=== PATIENT | female | born 1970 | race Caucasian/White ===

== ENCOUNTER 2020-02-27 19:46 | Emergency (ER) | payer SELFPAY ==
[2020-02-27 20:33] LABS: ABSOLUTE BASOPHILS # (AUTO) 0.1 10^3/uL (0.0-0.2); ABSOLUTE EOSINOPHILS # (AUTO) 0.1 10^3/uL (0.0-0.6); ABSOLUTE LYMPHOCYTES (AUTO) 3.1 10^3/uL (0.5-4.7); ABSOLUTE MONOCYTES (AUTO) 0.5 10^3/uL (0.1-1.4); ABSOLUTE NEUT (AUTO) 4.8 10^3/uL (1.7-8.2); BASOPHILS % (AUTO) 0.9 % (0-2); EOSINOPHILS % (AUTO) 1.6 % (0-6); HEMATOCRIT 39.2 % (36.0-47.0); HEMOGLOBIN 13.6 g/dL (12.0-15.5); LYMPHOCYTES % (AUTO) 35.4 % (13-45); MEAN CORPUSCULAR HEMOGLOBIN 30.1 pg (27.0-33.4); MEAN CORPUSCULAR HGB CONC 34.6 g/dL (32.0-36.0); MEAN CORPUSCULAR VOLUME 87 fl (80-97); MONOCYTES % (AUTO) 6.1 % (3-13); PLATELET COUNT 209 10^3/uL (150-450); RED BLOOD COUNT 4.51 10^6/uL (3.72-5.28); RED CELL DISTRIBUTION WIDTH 13.7 % (11.5-14.0); TOTAL CELLS COUNTED % (AUTO) 100 %; WHITE BLOOD COUNT 8.6 10^3/uL (4.0-10.5)
[2020-02-27 20:45] LABS: ALBUMIN 4.1 g/dL (3.5-5.0); ALKALINE PHOSPHATASE 130 U/L (38-126); ANION GAP 10 (5-19); ASPARTATE AMINO TRANSFERASE 38 U/L (14-36); BILIRUBIN,TOTAL 0.3 mg/dL (0.2-1.3); BLOOD UREA NITROGEN 14 mg/dL (7-20); CALCIUM 9.5 mg/dL (8.4-10.2); CARBON DIOXIDE 23 mmol/L (22-30); CHLORIDE 101 mmol/L (98-107); CREATINE KINASE 63 U/L (30-135); GLUCOSE 256 mg/dL (75-110); POTASSIUM 3.8 mmol/L (3.6-5.0); TOTAL PROTEIN 7.3 g/dL (6.3-8.2)
[2020-02-27 20:54] LABS: CREATINE KINASE MB 0.55 ng/mL (<4.55)
[2020-02-27 20:58] LABS: TROPONIN I < 0.012 ng/mL
--- NOTE | 2020-02-27 21:34 | RADIOLOGY REPORT (SQ) ---
EXAM DESCRIPTION: AP portable radiograph of the chest CLINICAL HISTORY: 49 years Female, dyspnea COMPARISON: None. FINDINGS: Lungs: Lungs are clear. No pneumonia or edema. No pneumothorax or pleural effusion. Mediastinum: Cardiac and mediastinal silhouette are normal. Bones: There appears to be focal density projecting over the left anterior first and second rib which may represent healing rib fractures. Vascular clips are seen in the left axilla. IMPRESSION: No acute process. No pneumonia or edema.
--- NOTE | 2020-02-27 21:40 | ER Document Report ---
ED General - General Chief Complaint: Chest Pain Stated Complaint: CHEST PAIN Time Seen by Provider: 02/27/20 20:22 - HPI Notes: Chief complaint: Cough and chest discomfort HPI: 49-year-old female cigarette smoker with history of COPD and diabetes mellitus type 2 complains of 7 to 10-day history of cough productive of yellow sputum associated with soreness in the chest aggravated by deep breathing, coughing and movement. She denies any known history of cardiac disease. No hyperlipidemia. Family history negative. Presently smoking 1/2 pack of cigarettes per day. Uses a rescue inhaler as needed. She does not use oxygen at home. She is not currently on steroids. Denies hemoptysis. Denies fever or chills. Denies vomiting. Denies any known history of thromboembolic disease. Patient says she has been isolating herself at home for many weeks because of concern about COVID-19 and her pre-existing respiratory problems. No contact with anyone known to have COVID-19. No travel outside the area. - Related Data Allergies/Adverse Reactions: amoxicillin Allergy (Verified 02/27/20 20:29) cinnamon Allergy (Verified 02/27/20 20:29) latex Allergy (Verified 02/27/20 20:29) ondansetron [From Zofran] Allergy (Verified 02/27/20 20:29) Penicillins Allergy (Verified 02/27/20 20:29) sertraline [From Zoloft] Allergy (Verified 02/27/20 20:29) Past Medical History - General Information source: Patient - Social History Smoking Status: Current Every Day Smoker Family History: Reviewed & Not Pertinent Patient has suicidal ideation: No Patient has homicidal ideation: No - Past Medical History Cardiac Medical History: Denies: Hx Coronary Artery Disease Pulmonary Medical History: Reports: Hx COPD Endocrine Medical History: Reports: Hx Diabetes Mellitus Type 2 Musculoskeletal Medical History: Reports Hx Arthritis Past Surgical History: Reports: Hx Appendectomy, Hx Hysterectomy, Hx Mastectomy Review of Systems - Review of Systems Notes: Constitutional: Negative for fever. HENT: Negative for sore throat. Eyes: Negative for visual changes. Cardiovascular: As per HPI. Respiratory: As per HPI. Gastrointestinal: Negative for abdominal pain, vomiting or diarrhea. Genitourinary: Negative for dysuria. Musculoskeletal: Negative for back pain. Skin: Negative for rash. Neurological: Negative for headaches, weakness or numbness. 10 point ROS negative except as marked above and in HPI. Physical Exam - Vital signs Vitals: Pulse Resp BP Pulse Ox 104 H 20 143/83 H 96 02/27/20 20:10 02/27/20 20:10 02/27/20 20:10 02/27/20 20:10 - Notes Notes: GENERAL: Well-developed well-nourished appearing in no acute distress. Patient appears somewhat older than stated age. SKIN: Good turgor no rashes. HEAD: Normocephalic atraumatic. EYES: PERRLA. EOMI. Conjunctivae and sclerae clear. EARS: CANALS AND TMS CLEAR. NOSE: CLEAR. MOUTH: Moist mucosa. Good dentition. No stridor or edema. No drooling. NECK: Supple. No masses or thyromegaly. No adenopathy. Carotids 2+ without bruits. No JVD. BACK: Symmetrical without tenderness. CHEST: Diffusely tender over anterior chest wall with exact reproduction of her pain. Respirations unlabored. Scattered rhonchi bilaterally. HEART: Regular rhythm. No murmur gallop or rub. ABDOMEN: Soft nontender without masses, organomegaly or rebound. Bowel sounds normally active. No bruits. GENITALIA: Deferred. EXTREMITIES: No edema. No calf tenderness. Cap refill less than 1.5 seconds. Dorsalis pedis and posterior tibial pulses 3+ and symmetrical. NEUROLOGICAL: GCS 15. Alert and oriented x3. Fluent speech. Cranial nerves II through XII intact. Sensorimotor and cerebellar normal. Normal tone. PSYCHIATRIC: Appropriate affect. Course - Re-evaluation Re-evalutation: 02/27/20 21:40 Troponin is normal. Chest x-ray shows no infiltrate per radiologist. White count is normal. She does not have a fever. Random glucose is 256. CO2 is normal. Transaminase values mildly elevated consistent with fatty infiltration of liver related to poor control diabetes. Twelve-lead EKG shows normal sinus rhythm with QRS axis of positive 3 degrees. LVH with secondary repolarization abnormality. I would have low suspicion for COVID-19 in this case. We want to check a flu swab and then I am going to treat this lady empirically for bronchitis and I have encouraged her again to stop smoking. She can follow-up with her primary care doctor. 02/27/20 21:42 - Vital Signs Vital signs: Temp Pulse Resp BP Pulse Ox 99.2 F 104 H 16 129/92 H 99 02/27/20 20:13 02/27/20 20:10 02/27/20 21:01 02/27/20 21:01 02/27/20 21:01 - Laboratory Result Diagrams: 02/27/20 20:11 02/27/20 20:11 Laboratory results interpreted by me: 02/27/20 20:11 Sodium 133.9 L Glucose 256 H AST 38 H ALT 36 H Alkaline Phosphatase 130 H Discharge - Discharge Clinical Impression: Acute exacerbation COPD, Cigarette smoker Condition: Stable Disposition: HOME, SELF-CARE Additional Instructions: Bronchitis You have acute bronchitis. This disease is an infection or inflammation of the air passageways in your lungs. Symptoms usually include cough, low grade fever, shortness of breath, and wheezing. The cough usually persists for a coup le of weeks. Most cases of bronchitis get better without antibiotics. We prescribe antibiotics when we believe bacteria are damaging your airways, or if there's high risk the bronchitis will worsen into pneumonia. Increase your fluid intake. A cool mist humidifier may make your lungs more comfortable. An expectorant (cough medicine that loosens phlegm) can help. If you smoke, STOP!!! Recovery from bronchitis can be somewhat slow, but you should see improvement within a day or two. Repeated episodes of bronchitis may result in lung damage -- for example, chronic bronchitis, recurrent pneumonias, or emphysema. Call the doctor if you develop increasing fever, shortness of breath, chest pain, bloody sputum, or otherwise worsen. If you have not improved at all after several days, contact the physician. Chronic Obstructive Lung Disease You have chronic obstructive lung disease (COPD). The symptoms come from emphysema (damage to small airways, with trapping of air in large sacks in the lung) and chronic bronchitis (repeated infection and damage to larger airways). The cause is almost always cigarette smoking, although dust exposure, asthma, and infections contribute. You should avoid fumes, dust, and smoke (especially tobacco smoke). Your condition will flare from time to time. There is no cure, but the symptoms can be treated. Bronchodilators (asthma medicine) are often helpful. Antibiotics help when infection is present. When shortness of breath is severe, we may prescribe cortisone medication. If medicine doesn't help enough, we can arrange for you to have an oxygen tank at home. Notify your doctor at once if sputum becomes thick, foul, or bloody, if you develop a fever or chest pain, or if your shortness of breath worsens. Take prescribed medication as instructed. Tylenol as needed. Increase oral fluids. Stop smoking. Follow-up with your primary care physician within the next 1 week. Prescriptions: Doxycycline Monohydrate 100 mg PO BID #20 capsule Forms: Smoking Cessation Education
[2020-02-27 22:13] VITALS: BP 131/95
[2020-02-27 22:15] LABS: A TYPE INFLUENZA AG NEGATIVE (NEGATIVE); B INFLUENZA AG NEGATIVE (NEGATIVE)
--- NOTE | 2020-02-28 08:17 | EKG REPORT ---
SEVERITY:- ABNORMAL ECG - SINUS RHYTHM LVH : Confirmed by: Dalia Sraavia MD 28-Feb-2020 08:16:50
== END 2020-02-27 22:56 | disposition home or self-care (01) ==
LOC: ER 19:46
DX: J44.1 Chronic obstructive pulmonary disease with (acute) exacerbation (principal); R07.9 Chest pain, unspecified; I51.7 Cardiomegaly; E11.9 Type 2 diabetes mellitus without complications; R05 Cough; F17.210 Nicotine dependence, cigarettes, uncomplicated; Z88.0 Allergy status to penicillin; Z91.018 Allergy to other foods; Z91.041 Radiographic dye allergy status; Z88.8 Allergy status to other drugs, medicaments and biological substances
CPT/HCPCS: 36415; 71045; 80053; 82550; 82553; 84484; 85025; 87804; 93005; 93010; 99285

== ENCOUNTER 2020-08-28 10:09 | Emergency (ER) | payer SELFPAY ==
[2020-08-28] MEDS ORDERED: AZITHROMYCIN 250 MG TABLET PO ONE (11:07)
[2020-08-28] MEDS ORDERED: DEXAMETHASONE 4 MG TABLET PO ONE (11:07)
[2020-08-28] MEDS ORDERED: ALBUTEROL SULFATE 0.083% NEB 2.5 MG/3 ML AMPUL NEB ONE (11:08)
--- NOTE | 2020-08-28 11:08 | ER Document Report ---
ED Respiratory Problem - General Chief Complaint: Shortness Of Breath Stated Complaint: SHORTNESS OF BREATH Time Seen by Provider: 08/28/20 10:27 Primary Care Provider: GIAN RED [Primary Care Provider] - Follow up as needed Notes: CHIEF COMPLAINT: Cough and shortness of breath for 4 days HPI: 50-year-old female who is a smoker presenting for cough and shortness of breath for 4 days coughing up green sputum. No fever. Complains of mild body ache. Patient states that her children were visiting her over the weekend just prior to her getting sick and they all had cough and "allergies". Patient denies chest pain. Denies abdominal pain nausea vomiting. ROS: See HPI - all other systems were reviewed and are otherwise negative Constitutional: no fever Eyes: no drainage, no blurred vision ENT: no runny nose, no sore throat Cardiovascular: no chest pain Resp: + SOB, + cough GI: no vomiting, no diarrhea, no abdominal pain : no dysuria Integumentary: no rash Allergy: no hives Musculoskeletal: no extremity pain or swelling Neurological: no numbness/tingling, no weakness MEDICATIONS: I agree with the patient medications as charted by the RN. ALLERGIES: I agree with the allergies as charted by the RN. PAST MEDICAL HISTORY/PAST SURGICAL HISTORY: Reviewed and agree as charted by RN. SOCIAL HISTORY: Reviewed and agree as charted by RN. FAMILY HISTORY: No significant familial comorbid conditions directly related to patient complaint EXAM: Reviewed vital signs as charted by RN. CONSTITUTIONAL: Alert and oriented and responds appropriately to questions. Well-appearing; well-nourished HEAD: Normocephalic; atraumatic EYES: PERRL; Conjunctivae clear, sclerae non-icteric ENT: normal nose; no rhinorrhea; moist mucous membranes; pharynx without lesions noted, no uvula edema or deviation, no tonsillar hypertrophy, phonation normal NECK: Supple without meningismus; non-tender; no cervical lymphadenopathy, no masses CARD: RRR; no murmurs, no clicks, no rubs, no gallops; symmetric distal pulses RESP: Normal chest excursion without splinting or tachypnea; breath sounds with some rhonchi right lower lobe. Congested cough noted, green sputum noted, pulse oximetry 96% on room air not hypoxic. ABD/GI: Normal bowel sounds; non-distended; soft, non-tender, no rebound, no guarding; no palpable organomegaly or masses. BACK: The back appears normal and is non-tender to palpation, there is no CVA tenderness EXT: Normal ROM in all joints; non-tender to palpation; no cyanosis, no effusions, no edema SKIN: Normal color for age and race; warm; dry; good turgor; no acute lesions noted NEURO: Moves all extremities equally; Motor and sensory function intact PSYCH: The patient's mood and manner are appropriate. Grooming and personal hygiene are appropriate. MDM: 50-year-old female with upper respiratory symptoms for 4 days. Coughing up green sputum. Children were all sick with upper respiratory symptoms recently. Chest x-ray does not show evidence of a significant infiltrate or pneumonia. She has no chest pain suggesting ACS. She is not hypoxic or significantly tachypneic. I suspect she likely has a lower respiratory infection, will test for Covid, anticipate discharge on antibiotics Decadron, albuterol with strict return precautions and quarantine precautions - Related Data Allergies/Adverse Reactions: amoxicillin Allergy (Verified 02/27/20 20:29) cinnamon Allergy (Verified 02/27/20 20:29) latex Allergy (Verified 02/27/20 20:29) ondansetron [From Zofran] Allergy (Verified 02/27/20 20:29) Penicillins Allergy (Verified 02/27/20 20:29) sertraline [From Zoloft] Allergy (Verified 02/27/20 20:29) Past Medical History - Social History Smoking Status: Unknown if Ever Smoked Family History: Reviewed & Not Pertinent Patient has homicidal ideation: No - Past Medical History Cardiac Medical History: Reports: Hx Hypertension Denies: Hx Coronary Artery Disease Pulmonary Medical History: Reports: Hx COPD Endocrine Medical History: Reports: Hx Diabetes Mellitus Type 2 Musculoskeletal Medical History: Reports Hx Arthritis Past Surgical History: Reports: Hx Appendectomy, Hx Hysterectomy, Hx Mastectomy - double Physical Exam - Vital signs Vitals: Temp Pulse Resp BP Pulse Ox 98.1 F 104 H 22 H 120/77 97 08/28/20 10:15 08/28/20 10:15 08/28/20 10:15 08/28/20 10:15 08/28/20 10:15 Course - Re-evaluation Re-evalutation: 08/28/20 11:20 EKG normal sinus rhythm with a ventricular rate of 87 OK 152 QT 396 QTC 477. Normal EKG, no other visible ectopy. Interpreted by emergency department physician. No significant change from prior EKG of February 27, 2020 08/28/20 12:12 Lung sounds remain clear to auscultation she feels better after breathing treatment states she does have a nebulizer at home but will need a new albuterol inhaler. She is agreeable with plan for discharge at this time will return for any worsening symptoms - Vital Signs Vital signs: Temp Pulse Resp BP Pulse Ox 98.1 F 104 H 22 H 120/77 97 08/28/20 10:15 08/28/20 10:15 08/28/20 10:15 08/28/20 10:15 08/28/20 10:15 Discharge - Discharge Clinical Impression: Lower respiratory infection, Person under investigation for COVID-19, Tobacco use Condition: Stable Disposition: HOME, SELF-CARE Additional Instructions: 1. take the medications as prescribed 2. if you were prescribed an Albuterol inhaler, use it as instructed, 2 puffs every 4 hours as needed for cough/wheezing 3. call your primary care provider as soon as possible to schedule recheck appt. in the office. 4. return to the ED for any worsening condition, shortness of breath or continued fever that does not resolve with Motrin/Tylenol 5. You are considered a person under investigation for COVID-19 at this time. Self quarantine at home pending your test results which may take 2 to 5 days. You should hear from someone at the hospital about your test results Prescriptions: Dexamethasone [Decadron 4 Mg Tablet] 4 mg PO DAILY #7 tablet Albuterol Sulfate [Proair HFA Inhalation Aerosol 8.5 gm MDI] 2 puff IH Q4H PRN #1 mdi PRN Reason: Azithromycin [Zithromax 250 mg Tablet] 250 mg PO ASDIR PRN #6 tablet PRN Reason: Referrals: COLIN QUIROZ MD [ACTIVE STAFF] - Follow up as needed
--- NOTE | 2020-08-28 11:29 | RADIOLOGY REPORT (SQ) ---
EXAM DESCRIPTION: CHEST SINGLE VIEW IMAGES COMPLETED DATE/TIME: 08/28/2020 11:07 am REASON FOR STUDY: SOB COMPARISON: 02/27/2020 EXAM PARAMETERS: NUMBER OF VIEWS: One view. TECHNIQUE: Single frontal radiographic view of the chest acquired. RADIATION DOSE: NA LIMITATIONS: None. FINDINGS: LUNGS AND PLEURA: No opacities, masses or pneumothorax. No pleural effusion. MEDIASTINUM AND HILAR STRUCTURES: No masses. Contour normal. HEART AND VASCULAR STRUCTURES: Heart normal in size. Normal vasculature. BONES: No acute findings. HARDWARE: None in the chest. OTHER: No other significant finding. IMPRESSION: NO ACUTE RADIOGRAPHIC FINDING IN THE CHEST. TECHNICAL DOCUMENTATION: JOB ID: [id number] 2010 [employer]- All Rights Reserved Reading location - IP/workstation name: [email or web address]
--- NOTE | 2020-08-28 12:47 | EKG REPORT ---
SEVERITY:- NORMAL ECG - SINUS RHYTHM : Confirmed by: Fernando Menchaca MD 28-Aug-2020 12:46:28
[2020-08-28 12:49] VITALS: BP 118/82
== END 2020-08-28 12:50 | disposition home or self-care (01) ==
LOC: ER 10:09
DX: J22 Unspecified acute lower respiratory infection (principal); F17.200 Nicotine dependence, unspecified, uncomplicated; Z20.828 Contact with and (suspected) exposure to other viral communicable diseases; R06.02 Shortness of breath; M79.10 Myalgia, unspecified site; I10 Essential (primary) hypertension; E11.9 Type 2 diabetes mellitus without complications; Z90.710 Acquired absence of both cervix and uterus
CPT/HCPCS: 93005; 94640; 99285; 87635; 71045; 93010; J8540; J7613; C9803

== ENCOUNTER 2020-09-18 11:42 | Emergency (ER) | payer SELFPAY ==
--- NOTE | 2020-09-18 14:03 | RADIOLOGY REPORT (SQ) ---
EXAM DESCRIPTION: CHEST SINGLE VIEW IMAGES COMPLETED DATE/TIME: 09/18/2020 1:46 pm REASON FOR STUDY: SOB COMPARISON: 08/28/2020 EXAM PARAMETERS: NUMBER OF VIEWS: One view. TECHNIQUE: Single frontal radiographic view of the chest acquired. RADIATION DOSE: NA LIMITATIONS: None. FINDINGS: LUNGS AND PLEURA: No opacities, masses or pneumothorax. No pleural effusion. MEDIASTINUM AND HILAR STRUCTURES: No masses. Contour normal. HEART AND VASCULAR STRUCTURES: Heart normal in size. Normal vasculature. BONES: No acute findings. HARDWARE: Left axillary surgical clips. OTHER: No other significant finding. IMPRESSION: NO ACUTE RADIOGRAPHIC FINDING IN THE CHEST. TECHNICAL DOCUMENTATION: JOB ID: [id number] 2010 [employer]- All Rights Reserved Reading location - IP/workstation name: [email or web address]
[2020-09-18] MEDS ORDERED: DEXAMETHASONE SOD PHOSPHATE INJ 4 MG/1 ML VIAL IM ONE (14:25)
[2020-09-18] MEDS ORDERED: IPRATROPIUM/ALBUTEROL 0.5-2.5 MG/3 ML AMPUL NEB ONE (14:26)
--- NOTE | 2020-09-18 14:30 | ER Document Report ---
ED General - General Chief Complaint: Cough Stated Complaint: COUGH,CONGESTION Time Seen by Provider: 09/18/20 14:09 Primary Care Provider: IRINA SHIELDS MD [Primary Care Provider] - Follow up as needed Mode of Arrival: Ambulatory Information source: Patient Notes: Patient is a 50-year-old female presenting today with 2 days of slightly productive cough and shortness of breath with fever and chills. Some body aches. No loss of taste or smell. History of type 2 diabetes, tobacco abuse. Denies nausea vomiting and diarrhea - Related Data Allergies/Adverse Reactions: amoxicillin Allergy (Verified 09/18/20 13:21) cinnamon Allergy (Verified 09/18/20 13:21) latex Allergy (Verified 09/18/20 13:21) ondansetron [From Zofran] Allergy (Verified 09/18/20 13:21) Penicillins Allergy (Verified 09/18/20 13:21) sertraline [From Zoloft] Allergy (Verified 09/18/20 13:21) Past Medical History - Social History Smoking Status: Current Every Day Smoker Family History: Reviewed & Not Pertinent Patient has homicidal ideation: No - Past Medical History Cardiac Medical History: Reports: Hx Hypertension Denies: Hx Coronary Artery Disease Pulmonary Medical History: Reports: Hx COPD Endocrine Medical History: Reports: Hx Diabetes Mellitus Type 2 Musculoskeletal Medical History: Reports Hx Arthritis Past Surgical History: Reports: Hx Appendectomy, Hx Hysterectomy, Hx Mastectomy - double Review of Systems - Review of Systems Notes: Constitutional: Positive for fever, chills, body aches, generalized malaise EENT: No eye redness. No eye pain. No ear pain. No sore throat. Cardiovascular: No chest pain. No palpitations. Respiratory: Positive for cough and shortness of breath Gastrointestinal: No abdominal pain. No nausea, vomiting, or diarrhea. Genitourinary: Atraumatic. No lesions. No pain. No discharge. Musculoskeletal: Atraumatic. No swelling. No deformities. Skin: No rash or lesions. Lymphatic: No swollen lymph nodes. Neurologic: No headache. No syncope. Psychiatric: No suicidal or homicidal ideation. Physical Exam - Vital signs Vitals: Temp Pulse Resp BP Pulse Ox 98.2 F 111 H 20 115/75 98 09/18/20 11:48 09/18/20 11:48 09/18/20 11:48 09/18/20 11:48 09/18/20 11:48 - Notes Notes: General: Well-developed, well-nourished. In no acute distress. Non-toxic appearing. Cardiac: Well-perfused. Tachycardic .no murmurs, rubs, or gallops. Pulmonary: No respiratory distress. No cyanosis. Diminished breath sounds bilaterally Abdominal: Non-distended. Non-rigid. Bowels sounds are present in all four quadrants. No guarding or rebound. HEENT: Head is atraumatic. Conjunctivae not reddened. No tearing. PERRL. EOMI. Orbits atraumatic. No periorbital swelling or erythema. Oropharynx is without erythema, swelling, or exudates. Neck: Supple. No adenopathy. No meningismus. Dermatologic: Warm with good turgor. No rash. Atraumatic. Chest: Atraumatic. No chest wall tenderness to palpation. Musculoskeletal: Moves all extremities well. No range of motion deficits. no muscular or joint tenderness. No paraspinal muscle tenderness. no midline spinal tenderness or step-off. Genitourinary: Examination deferred Neurologic: No gross neurologic deficits. Psychiatric: Normal mood. Course - Re-evaluation Re-evalutation: 09/18/20 16:34 Feeling better after the breathing treatment. She is hyponatremic. We will give 1 L of normal saline to help correct that to some extent .Her D-dimer was negative. Will put her on some dexamethasone and azithromycin. She has plenty of metered-dose inhalers at home. We will also put her on some Robitussin-AC. [facility] Return to ED if worse. 09/18/20 16:37 - Vital Signs Vital signs: Temp Pulse Resp BP Pulse Ox 98.2 F 111 H 20 115/75 98 09/18/20 11:48 09/18/20 11:48 09/18/20 11:48 09/18/20 11:48 09/18/20 11:48 - Laboratory Result Diagrams: 09/18/20 15:15 09/18/20 15:15 Laboratory results interpreted by me: 09/18/20 09/18/20 15:15 15:15 RDW 14.1 H Sodium 132.8 L Alkaline Phosphatase 157 H Discharge - Discharge Clinical Impression: Bronchitis, Hyponatremia, Person under investigation for COVID-19 Condition: Good Disposition: HOME, SELF-CARE Instructions: COVID-19 Guidance for Persons Under Investigation, Bronchitis ([facility]), Hyponatremia ([facility]) Additional Instructions: Encouraged to eat a bit more salt in your diet for the next 3 to 5 days. Referrals: IRINA SHIELDS MD [Primary Care Provider] - Follow up as needed
[2020-09-18 15:51] LABS: ABSOLUTE BASOPHILS # (AUTO) 0.1 10^3/uL (0.0-0.2); ABSOLUTE EOSINOPHILS # (AUTO) 0.2 10^3/uL (0.0-0.6); ABSOLUTE LYMPHOCYTES (AUTO) 3.7 10^3/uL (0.5-4.7); ABSOLUTE MONOCYTES (AUTO) 0.6 10^3/uL (0.1-1.4); ABSOLUTE NEUT (AUTO) 5.2 10^3/uL (1.7-8.2); BASOPHILS % (AUTO) 0.6 % (0-2); EOSINOPHILS % (AUTO) 1.7 % (0-6); HEMATOCRIT 41.1 % (36.0-47.0); HEMOGLOBIN 13.7 g/dL (12.0-15.5); LYMPHOCYTES % (AUTO) 38.1 % (13-45); MEAN CORPUSCULAR HEMOGLOBIN 29.4 pg (27.0-33.4); MEAN CORPUSCULAR HGB CONC 33.4 g/dL (32.0-36.0); MEAN CORPUSCULAR VOLUME 88 fl (80-97); MONOCYTES % (AUTO) 5.8 % (3-13); PLATELET COUNT 252 10^3/uL (150-450); RED BLOOD COUNT 4.66 10^6/uL (3.72-5.28); RED CELL DISTRIBUTION WIDTH 14.1 % (11.5-14.0); SEGMENTED NEUTROPHILS % (AUTO) 53.8 % (42-78); TOTAL CELLS COUNTED % (AUTO) 100 %; WHITE BLOOD COUNT 9.8 10^3/uL (4.0-10.5)
[2020-09-18 16:03] LABS: ALBUMIN 4.3 g/dL (3.5-5.0); ALKALINE PHOSPHATASE 157 U/L (38-126); ANION GAP 11 (5-19); ASPARTATE AMINO TRANSFERASE 28 U/L (14-36); BILIRUBIN,DIRECT 0.1 mg/dL (0.0-0.4); BILIRUBIN,TOTAL 0.3 mg/dL (0.2-1.3); BLOOD UREA NITROGEN 17 mg/dL (7-20); CALCIUM 10.1 mg/dL (8.4-10.2); CARBON DIOXIDE 22 mmol/L (22-30); CHLORIDE 100 mmol/L (98-107); GLUCOSE 89 mg/dL (75-110); POTASSIUM 4.1 mmol/L (3.6-5.0); TOTAL PROTEIN 7.2 g/dL (6.3-8.2)
[2020-09-18 16:10] LABS: A TYPE INFLUENZA AG NEGATIVE (NEGATIVE); B INFLUENZA AG NEGATIVE (NEGATIVE)
[2020-09-18] MEDS ORDERED: NORMAL SALINE 1000 ML 1,000 ML IV ONE (16:20)
[2020-09-18 18:22] VITALS: BP 116/77
== END 2020-09-18 18:21 | disposition home or self-care (01) ==
LOC: ER 11:42
DX: J44.9 Chronic obstructive pulmonary disease, unspecified (principal); E87.1 Hypo-osmolality and hyponatremia; R05 Cough; R06.02 Shortness of breath; R50.9 Fever, unspecified; R52 Pain, unspecified; R53.81 Other malaise; R00.0 Tachycardia, unspecified; E11.9 Type 2 diabetes mellitus without complications; F17.200 Nicotine dependence, unspecified, uncomplicated; I10 Essential (primary) hypertension; Z88.0 Allergy status to penicillin; Z91.018 Allergy to other foods; Z91.040 Latex allergy status; Z88.8 Allergy status to other drugs, medicaments and biological substances; Z20.828 Contact with and (suspected) exposure to other viral communicable diseases
CPT/HCPCS: 94640; 99284; 96372; 96360; 36415; 85025; 87635; 80053; 85379; 87804; 71045; J1100; J7030; C9803

== ENCOUNTER 2020-10-17 08:58 | Emergency (ER) | payer SELFPAY ==
--- NOTE | 2020-10-17 11:24 | ER Document Report ---
ED General - General Chief Complaint: Shortness Of Breath Stated Complaint: COLD SYMPTOMS Time Seen by Provider: 10/17/20 10:03 Primary Care Provider: IRINA SHIELDS MD [Primary Care Provider] - Follow up as needed - [facility] Notes: Patient is a 50-year-old female who presents emergency department for evaluation. She was seen back in September, diagnosed with bronchitis. She states she took all the antibiotics and steroids. Her symptoms seem to improve for a while and then they got worse again. She has had some chills, cough. She has some facial pain this been present for the last 3 weeks on the left side. It is associated with some purulent drainage. She has pain that radiates from the side of her face into her left ear and into the left side of her posterior neck. She states when she moves that it feels like there is "[id number]." She denies any numbness or tingling, weakness in her upper extremities. She has had some chills but no caitlin fevers to her knowledge. She is had some nausea but no emesis, with the exception of post tussive emesis in the mornings. She has had some diarrhea. - Related Data Allergies/Adverse Reactions: amoxicillin Allergy (Verified 09/18/20 13:21) cinnamon Allergy (Verified 09/18/20 13:21) latex Allergy (Verified 09/18/20 13:21) ondansetron [From Zofran] Allergy (Verified 09/18/20 13:21) Penicillins Allergy (Verified 09/18/20 13:21) sertraline [From Zoloft] Allergy (Verified 09/18/20 13:21) Home Medications: lantus, humalog, duoneb, proventil, metformin, prozac, l isinopril, trazodone Past Medical History - General Information source: Patient - Social History Smoking Status: Current Every Day Smoker Chew tobacco use (# tins/day): No Frequency of alcohol use: None Drug Abuse: None Family History: Reviewed & Not Pertinent - Past Medical History Cardiac Medical History: Reports: Hx Hypertension Denies: Hx Coronary Artery Disease Pulmonary Medical History: Reports: Hx Asthma, Hx COPD Endocrine Medical History: Reports: Hx Diabetes Mellitus Type 2 Musculoskeletal Medical History: Reports Hx Arthritis Psychiatric Medical History: Reports: Hx Bipolar Disorder, Hx Depression - anxiety Past Surgical History: Reports: Hx Appendectomy, Hx Hysterectomy, Hx Mastectomy - double Review of Systems - Review of Systems Constitutional: See HPI EENT: See HPI Cardiovascular: No symptoms reported Respiratory: See HPI Gastrointestinal: See HPI Genitourinary: No symptoms reported Musculoskeletal: See HPI Skin: No symptoms reported Neurological/Psychological: No symptoms reported Physical Exam - Vital signs Vitals: Temp Pulse Resp BP Pulse Ox 98.8 F 110 H 18 108/73 96 10/17/20 09:05 10/17/20 09:05 10/17/20 09:05 10/17/20 09:05 10/17/20 09:05 - Notes Notes: Vital signs reviewed, please refer to chart. Head is normocephalic, atraumatic. Pupils equal round, reactive to light. Patient is tender over the left frontal and maxillary sinuses. Right TM is pearly jacob with good light reflex. Left TM is retracted with effusion, erythematous. Neck is supple without meningismus. She does have some tenderness to the left paraspinal musculature throughout the cervical spine and into the trapezius, as well as the left SCM. Heart is regular rate and rhythm. Lungs are clear to auscultation bilaterally. Abdomen is soft, nontender, normoactive bowel sounds throughout. Extremities without cyanosis, clubbing. Posterior calves are nontender. Peripheral pulses are equal. Skin is warm and dry. Patient is awake, alert, neurological exam is nonfocal. Course - Re-evaluation Re-evalutation: 10/17/20 11:23 Patient presents emergency department for evaluation. She is a longtime smoker. She is counseled that she needs to quit smoking, she states she is cutting back. On exam she has findings consistent with left otitis media as well as left sided sinusitis. Given her diarrhea and cough I am inclined to test for COVID-19, the patient is amenable to this. Otherwise, her lungs do not show any focal findings on exam and she is 96% on room air. I am not inclined to perform a chest x-ray, she does need antibiotics for her left otitis media as well as sinusitis. I can treat her with Biaxin given her allergy to amoxicillin. Given her shortness of breath and history of asthma I am inclined to treat with steroids as well, and although she is not wheezing here, she states she has been wheezing extensively. She is to use her DuoNeb's at home. She is to return to the emergency department with worsening or new concerning symptoms of any sort. - Vital Signs Vital signs: Temp Pulse Resp BP Pulse Ox 98.2 F 90 18 110/80 98 10/17/20 11:53 10/17/20 11:53 10/17/20 11:53 10/17/20 11:53 10/17/20 11:53 - Laboratory Results Critical Laboratory Results Reviewed: No Critical Results - Radiology Results Critical Radiology Results Reviewed: No Critical Results Discharge - Discharge Clinical Impression: Left otitis media with effusion, Neck muscle spasm, Asthma Acute sinusitis Qualifiers: Sinusitis location: unspecified location Recurrence: not specified as recurrent Qualified Code(s): J01.90 - Acute sinusitis, unspecified Condition: Stable Disposition: HOME, SELF-CARE Instructions: COVID-19 Guidance for Persons Under Investigation, Otitis Media ([facility]), Sinusitis ([facility]) Additional Instructions: Please take medications as prescribed. You have been tested for COVID-19, please quarantine until results return. Follow-up with primary care in 1 to 2 weeks. Try to quit smoking. If you develop increased difficulty breathing, or any other new or concerning symptoms, please return immediately to the emergency department for evaluation. Prescriptions: Clarithromycin [Biaxin 500 mg Tablet] 1 tab PO Q12 #28 tab Prednisone [Deltasone 20 mg Tablet] See Protocol PO DAILY 5 Days #20 tablet Methocarbamol [Robaxin-750] 750 mg PO TID PRN #21 tablet PRN Reason: Referrals: IRINA SHIELDS MD [Primary Care Provider] - Follow up as needed
[2020-10-17 11:53] VITALS: BP 110/80
== END 2020-10-17 11:53 | disposition home or self-care (01) ==
LOC: ER 08:58
DX: J01.90 Acute sinusitis, unspecified (principal); H65.92 Unspecified nonsuppurative otitis media, left ear; J44.9 Chronic obstructive pulmonary disease, unspecified; R05 Cough; R68.83 Chills (without fever); R51.9 Headache, unspecified; M62.838 Other muscle spasm; R11.0 Nausea; R19.7 Diarrhea, unspecified; F17.200 Nicotine dependence, unspecified, uncomplicated; I10 Essential (primary) hypertension; F32.9 Major depressive disorder, single episode, unspecified; F41.9 Anxiety disorder, unspecified; E11.9 Type 2 diabetes mellitus without complications; Z79.4 Long term (current) use of insulin; Z79.899 Other long term (current) drug therapy; Z88.0 Allergy status to penicillin; Z91.018 Allergy to other foods; Z91.040 Latex allergy status; Z88.8 Allergy status to other drugs, medicaments and biological substances; Z20.828 Contact with and (suspected) exposure to other viral communicable diseases
CPT/HCPCS: 99283; 87635; C9803

== ENCOUNTER 2020-11-06 17:29 | Emergency (ER) | payer MEDICAID, SELFPAY ==
--- NOTE | 2020-11-06 21:04 | ER Document Report ---
ED General - General Chief Complaint: Breathing Difficulty Stated Complaint: DIFFICULTY BREATHING Time Seen by Provider: 11/06/20 20:12 Primary Care Provider: IRINA SHIELDS MD [Primary Care Provider] - Follow up in 3-5 days - [facility] Notes: Patient is a 50-year-old female with a past medical history of diabetes, hypertension, fibromyalgia who presents with multiple complaints. Patient states she has been having symptoms for about 2 months. She has been treated by her PCP with multiple antibiotics for sinusitis, ear infections. She states she just finished a course of antibiotics about 1 week ago. She states that the antibiotics are not helping. She does not remember all the antibiotics but stat es she was on azithromycin. She saw her PCP today who told her to go to the ED. Was also diagnosed with thrush today by her PCP likely due to the antibiotics she has been on and he ordered her a swish and swallow medication for that. Patient states she also has some neck discomfort in her left lateral neck muscles for several months. She has discomfort when she turns her neck to the left. Her PCP is ordering outpatient MRI for this. She denies any trauma. Patient describes chest tightness. She has a cough and feels like she cannot get anything out when she coughs. She also has muscle aches. No abdominal pain, urinary symptoms, nausea, vomiting, or diarrhea. She does mention that s he has had some loss of taste. Patient was last tested for Covid about 2 weeks ago and it was negative. She also mentions that she had hives under her left arm after eating a cheese that she was allergic to. She has been itching the rash. Patient states that she has been putting hydrogen peroxide on it and antibiotic ointment. - Related Data Allergies/Adverse Reactions: amoxicillin Allergy (Verified 09/18/20 13:21) cinnamon Allergy (Verified 09/18/20 13:21) latex Allergy (Verified 09/18/20 13:21) ondansetron [From Zofran] Allergy (Verified 09/18/20 13:21) Penicillins Allergy (Verified 09/18/20 13:21) sertraline [From Zoloft] Allergy (Verified 09/18/20 13:21) Past Medical History - General Information source: Patient - Social History Smoking Status: Current Every Day Smoker Family History: Reviewed & Not Pertinent - Past Medical History Cardiac Medical History: Reports: Hx Hypertension Denies: Hx Coronary Artery Disease Pulmonary Medical History: Reports: Hx Asthma, Hx COPD Endocrine Medical History: Reports: Hx Diabetes Mellitus Type 2 Musculoskeletal Medical History: Reports Hx Arthritis Psychiatric Medical History: Reports: Hx Bipolar Disorder, Hx Depression - anxiety Past Surgical History: Reports: Hx Appendectomy, Hx Hysterectomy, Hx Mastectomy - double Review of Systems - Review of Systems Notes: CONSTITUTIONAL: No fever or weight loss. Positive for fatigue. SKIN: Positive for rash under left arm. HENT: Positive for congestion, ear fullness, sore throat. CARDIOVASCULAR: No chest pain or edema. RESPIRATORY: Positive for dry cough, shortness of breath, congestion, chest tightness. GASTROINTESTINAL: No abdominal pain, nausea, vomiting, bloody stools or diarrhea. GENITOURINARY: No dysuria. MUSCULOSKELETAL: No joint pain or swelling. NEUROLOGIC: No seizures. No focal weakness or sensory changes. Positive for headaches. HEMATOLOGIC: No unusual bruising or bleeding. PSYCHIATRIC: No depression or anxiety. Physical Exam - Vital signs Vitals: Temp Pulse Resp BP Pulse Ox 98.1 F 99 24 H 112/70 98 11/06/20 17:59 11/06/20 17:59 11/06/20 17:59 11/06/20 17:59 11/06/20 17:59 - General General appearance: Appears well In distress: None Notes: VITAL SIGNS: Within normal limits. GENERAL: No acute distress, non-toxic appearance. HEAD: Normal with no signs of head trauma. EYES: Conjunctiva normal, no discharge. EARS: Hearing grossly intact. External ears appear normal. NOSE: Normal. THROAT: Thrush present. NECK: Normal range of motion, no tenderness, supple, no lymphadenopathy, No adenopathy, no JVD. CHEST: Clear breath sounds bilaterally. No wheezes, rales, or rhonchi. CARDIAC: Regular rate and rhythm. VASCULAR: No Edema. ABDOMEN: Normal and soft with no tenderness MUSCULOSKELETAL: Good range of motion of all major joints. Extremities without clubbing, cyanosis or edema. NEUROLOGICAL: Alert and oriented x 3. No focal sensory or strength deficits. Speech normal. Follows commands appropriately. PSYCHIATRIC: Normal Affect, judgement and mood. SKIN: Small circular rash that was excoriated and has some slight erythema around the edges under her left arm. Course - Re-evaluation Re-evalutation: 11/06/20 23:48 Patient appears well on exam. She is breathing easy on room air. I did obtain a work-up including a D-dimer to rule out a PE. Patient was given Toradol. On reassessment, she states she feels much better. Patient states her symptoms are completely resolved. I did discuss with her that she needs to isolate until her Covid test comes back and she verbalized understanding. The area under her left arm does seem to have a little bit of erythema around it and an open area. I told her to avoid using hydrogen peroxide as that is irritating the skin. I wrote her for mupirocin ointment. Patient was told to follow-up with her PCP. I instructed her on anti-inflammatories and Tylenol. I also recommended she get an [id number] lidocaine patch as well as warm compresses for the left upper back tenderness. Patient is very agreeable to this. She states she would like to go home and feels much better. She was told to follow-up with her PCP. - Vital Signs Vital signs: Temp Pulse Resp BP Pulse Ox 98.1 F 89 24 H 106/64 95 11/07/20 00:08 11/07/20 00:08 11/06/20 17:59 11/07/20 00:08 11/07/20 00:08 - Laboratory Results Result Diagrams: 11/06/20 22:13 11/06/20 22:13 Laboratory Results Interpreted: 11/06/20 11/06/20 22:13 22:13 WBC 11.7 H RDW 14.5 H Sodium 131.6 L BUN 29 H Total Protein 6.2 L Critical Laboratory Results Reviewed: No Critical Results - Radiology Results Critical Radiology Results Reviewed: No Critical Results - EKG Interpretation by Hi EKG shows normal: Sinus rhythm Rate: Normal Rhythm: NSR When compared to previous EKG there are: No significant change Additional EKG results interpreted by me: 11/07/20 05:25 Sinus rhythm at a rate of 89. QTc 458. No acute ST changes. EKG is unchanged from previous. Discharge - Discharge Clinical Impression: Cough, Generalized muscle ache, Suspected COVID-19 virus infection Condition: Stable Disposition: HOME, SELF-CARE Instructions: COVID-19 Guidance for Persons Under Investigation Additional Instructions: Your work-up today is reassuring. You can take Tylenol and ibuprofen for muscle pain. You may also use a lidocaine patch. Please make sure you are staying hydrated. Please take a multivitamin. You were tested for Covid today. Please isolate until you are called with a negative result. Please follow-up with your family doctor. Return to the ER immediately for any shortness of breath or wors ening symptoms. Prescriptions: Mupirocin [Bactroban 2% Ointment 22 gm] 1 applic TP TID 7 Days #1 tube Referrals: IRINA SHIELDS MD [Primary Care Provider] - Follow up in 3-5 days
[2020-11-06 22:14] LABS: APPEARANCE,URINE CLEAR; BILIRUBIN,URINE NEGATIVE (NEGATIVE); COLOR,URINE YELLOW; GLUCOSE, URINE NEGATIVE (NEGATIVE); KETONES,URINE NEGATIVE (NEGATIVE); LEUKOCYTE ESTERASE,URINE NEGATIVE (NEGATIVE); NITRITE,URINE NEGATIVE (NEGATIVE); PROTEIN,URINE NEGATIVE (NEGATIVE); URINE SPECIFIC GRAVITY 1.017; UROBILINOGEN,URINE NEGATIVE mg/dL (<2.0)
--- NOTE | 2020-11-06 22:19 | RADIOLOGY REPORT (SQ) ---
EXAM DESCRIPTION: Site: CHEST SINGLE VIEW RP: XR CHEST 1 VIEW CLINICAL HISTORY: 50 years Female; cough; COMPARISON: 09/18/2020 FINDINGS: Lungs: Lungs are clear, with no focal infiltrate, pneumothorax, or pleural effusion. Mediastinum: Mediastinum is within normal limits for this positioning. Bones: Bony structures are unremarkable. Left axillar surgical clips are again noted. IMPRESSION: 1. No acute pulmonary findings.
[2020-11-06 22:29] LABS: ABSOLUTE BASOPHILS # (AUTO) 0.1 10^3/uL (0.0-0.2); ABSOLUTE EOSINOPHILS # (AUTO) 0.2 10^3/uL (0.0-0.6); ABSOLUTE LYMPHOCYTES (AUTO) 4.4 10^3/uL (0.5-4.7); ABSOLUTE MONOCYTES (AUTO) 0.6 10^3/uL (0.1-1.4); ABSOLUTE NEUT (AUTO) 6.5 10^3/uL (1.7-8.2); BASOPHILS % (AUTO) 0.8 % (0-2); EOSINOPHILS % (AUTO) 1.5 % (0-6); HEMOGLOBIN 12.8 g/dL (12.0-15.5); LYMPHOCYTES % (AUTO) 37.4 % (13-45); MEAN CORPUSCULAR HEMOGLOBIN 29.1 pg (27.0-33.4); MEAN CORPUSCULAR HGB CONC 33.8 g/dL (32.0-36.0); MEAN CORPUSCULAR VOLUME 86 fl (80-97); MONOCYTES % (AUTO) 4.9 % (3-13); PLATELET COUNT 221 10^3/uL (150-450); RED CELL DISTRIBUTION WIDTH 14.5 % (11.5-14.0); SEGMENTED NEUTROPHILS % (AUTO) 55.4 % (42-78); TOTAL CELLS COUNTED % (AUTO) 100 %; WHITE BLOOD COUNT 11.7 10^3/uL (4.0-10.5)
[2020-11-06 22:32] LABS: A TYPE INFLUENZA AG NEGATIVE (NEGATIVE); B INFLUENZA AG NEGATIVE (NEGATIVE)
[2020-11-06 22:47] LABS: ALBUMIN 3.7 g/dL (3.5-5.0); ALKALINE PHOSPHATASE 103 U/L (38-126); ASPARTATE AMINO TRANSFERASE 22 U/L (14-36); BILIRUBIN,DIRECT 0.1 mg/dL (0.0-0.4); BILIRUBIN,TOTAL 0.2 mg/dL (0.2-1.3); BLOOD UREA NITROGEN 29 mg/dL (7-20); CALCIUM 9.3 mg/dL (8.4-10.2); GLUCOSE 107 mg/dL (75-110); TOTAL PROTEIN 6.2 g/dL (6.3-8.2)
[2020-11-06 22:55] LABS: ANION GAP 8 (5-19); CARBON DIOXIDE 25 mmol/L (22-30); CHLORIDE 99 mmol/L (98-107); POTASSIUM 3.9 mmol/L (3.6-5.0)
[2020-11-06] MEDS ORDERED: KETOROLAC TROMETHAMINE INJ/PF 30 MG/1 ML SDV IV ONE (23:01)
--- NOTE | 2020-11-06 23:30 | EKG REPORT ---
SEVERITY:- NORMAL ECG - SINUS RHYTHM : Confirmed by: Libra James 06-Nov-2020 23:30:18
[2020-11-07 00:57] VITALS: BP 106/64
== END 2020-11-07 01:05 | disposition home or self-care (01) ==
LOC: ER 17:29
DX: M79.10 Myalgia, unspecified site (principal); J44.9 Chronic obstructive pulmonary disease, unspecified; B37.9 Candidiasis, unspecified; R07.89 Other chest pain; R05 Cough; R43.9 Unspecified disturbances of smell and taste; R21 Rash and other nonspecific skin eruption; F17.200 Nicotine dependence, unspecified, uncomplicated; I10 Essential (primary) hypertension; E11.9 Type 2 diabetes mellitus without complications; Z88.0 Allergy status to penicillin; Z91.018 Allergy to other foods; Z91.040 Latex allergy status; Z88.8 Allergy status to other drugs, medicaments and biological substances; Z20.822 Contact with and (suspected) exposure to COVID-19
CPT/HCPCS: 93005; 99285; 96374; 36415; 85025; 87635; 80053; 81001; 84484; 85379; 87804; 71045; 93010; J1885; C9803